=== PATIENT | female | born 1960 | race Caucasian/White ===

== ENCOUNTER 2021-07-30 13:17 | Outpatient (CLI) | payer OTHER | END 2021-07-30 13:18 | disposition home or self-care (01) | LOC: CSHMAMMO 13:17 | PROVIDERS: ATTEND Internal Medicine Hematology & Oncology | DX: C50.412 Malignant neoplasm of upper-outer quadrant of left female breast (principal) | CPT/HCPCS: 77066; G0279 ==

== ENCOUNTER 2022-10-03 13:32 | Outpatient (CLI) | payer OTHER | END 2022-10-03 13:33 | disposition home or self-care (01) | LOC: CSHMAMMO 13:32 | PROVIDERS: ATTEND Internal Medicine Hematology & Oncology | DX: C50.412 Malignant neoplasm of upper-outer quadrant of left female breast (principal); Z98.890 Other specified postprocedural states; Z85.3 Personal history of malignant neoplasm of breast; Z85.828 Personal history of other malignant neoplasm of skin; Z80.3 Family history of malignant neoplasm of breast | CPT/HCPCS: 77066; G0279 ==

== ENCOUNTER 2023-10-13 15:15 | Outpatient (CLI) | payer OTHER | END 2023-10-13 15:16 | disposition home or self-care (01) | LOC: CSHMAMMO 15:15 | PROVIDERS: ATTEND Internal Medicine Hematology & Oncology | DX: Z12.31 Encounter for screening mammogram for malignant neoplasm of breast (principal); Z80.3 Family history of malignant neoplasm of breast; Z85.3 Personal history of malignant neoplasm of breast; Z85.828 Personal history of other malignant neoplasm of skin; Z98.890 Other specified postprocedural states | CPT/HCPCS: 77063; 77067 ==

== ENCOUNTER 2024-12-09 14:19 | Outpatient (CLI) | payer OTHER | END 2024-12-09 14:20 | disposition home or self-care (01) | LOC: CSHMAMMO 14:19 | PROVIDERS: ATTEND Emergency Medicine | DX: Z12.31 Encounter for screening mammogram for malignant neoplasm of breast (principal); Z80.3 Family history of malignant neoplasm of breast; Z85.820 Personal history of malignant melanoma of skin; Z86.000 Personal history of in-situ neoplasm of breast; Z98.890 Other specified postprocedural states | CPT/HCPCS: 77063; 77067 ==